=== PATIENT | female | born 1965 | race Caucasian/White ===

== ENCOUNTER 2020-12-23 16:44 | Emergency (ER) | payer MEDICARE ==
[~2020-12-23] VITALS: Ht 160 cm; Wt 141.2 kg
--- NOTE | 2020-12-23 17:57 | NUR ---
TASK RN: RIGHT FOREARM 20G PIV PLACED WITH ULTRASOUND
[2020-12-23 18:13] LABS: BASOPHILS % (AUTO) 1 % (0-1); EOSINOPHILS % (AUTO) 1 % (1-7); LYMPHOCYTES % (AUTO) 25 % (22-44); MEAN CORPUSCULAR HEMOGLOBIN 30.6 pg (27.0-34.8); MEAN CORPUSCULAR HGB CONC 33.4 g/dL (32.4-35.8); MEAN PLATELET VOLUME 7.2 fL (7.4-10.4); MONOCYTES % (AUTO) 6 % (2-9); NEUTROPHILS % (AUTO) 67 % (42-75); PLATELET COUNT 337 x10^3/uL (130-400); RED CELL DISTRIBUTION WIDTH 14.7 % (9.6-15.2)
--- NOTE | 2020-12-23 18:15 | NUR ---
PT TO ROOM FROM LOBBY WITH TECHS. PT RESTLESS AND DISTRAUGHT OVER ABD PAIN. HX OF SAME PAIN AND DIVERTICULITIS, SEEN IN ED AT [facility] IN [facility] RECENTLY FOR SAME. DENIES N/V/D, CHEST PAIN/DYSURIA. LBM TODAY. BP/SPO2/ECG MONITORING IN PLACE. NSR ON MONITOR.
[2020-12-23 18:17] LABS: MD NO
[2020-12-23 18:20] LABS: ALANINE AMINOTRANSFERASE 54 U/L (12-78); ALBUMIN 4.1 g/dL (3.4-5.0); ANION GAP 8 mmol/L (5-15); CALCIUM 9.2 mg/dL (8.5-10.1); CHLORIDE 96 mmol/L (98-107); CREATININE 1.02 mg/dL (0.55-1.02)
--- NOTE | 2020-12-23 18:24 | NUR ---
DOTTIE ACHARYA COLLECTED AND WALKED TO LAB
[2020-12-23 18:25] LABS: ALKALINE PHOSPHATASE 79 U/L (45-117); BILIRUBIN,TOTAL 0.3 mg/dL (0.2-1.0); TOTAL PROTEIN 8.7 g/dL (6.4-8.2); TROPONIN I < 0.015 ng/mL (0.000-0.045)
[2020-12-23 18:40] LABS: MICROSCOPIC NOT IND
--- NOTE | 2020-12-23 19:04 | NUR ---
PT RESTING IN [facility] NOTED. REPORTS PAIN HAS IMPROVED SIGNIFICANTLY " LONG I DON'T MOVE". CHART UP FOR RECHECK
[2020-12-23] MEDS ORDERED: LORazepam 1MG TABLET ONE (19:25)
--- NOTE | 2020-12-23 19:29 | NUR ---
ERP TO BEDSIDE TESTING RESULTS PLAN TO MEDICATE WITH ANXIOLYTICS THEN D/C IN CARE OF BOYFRIEND MEDICATED PER EMAR
[2020-12-23] MEDS ORDERED: LORazepam 1MG TABLET PO ONE (19:30)
[2020-12-23 19:53] VITALS: BP 148/82
--- NOTE | 2020-12-23 19:54 | NUR ---
Patient/Caregiver given discharge instructions and they have confirmed that they understand the instructions. Patient ambulatory with steady gait.
== END 2020-12-23 20:01 | disposition home or self-care (01) ==
LOC: ED 19:55
DX: R10.84 Generalized abdominal pain (principal); R94.31 Abnormal electrocardiogram [ECG] [EKG]; I10 Essential (primary) hypertension
CPT/HCPCS: 36415; 71045; 80053; 81003; 83690; 84484; 85025; 93005; 99285